=== PATIENT | female | born 1985 | race Two or more races ===

== ENCOUNTER 2016-11-07 05:06 | Day surgery (SDC) | payer BC, MEDICAID ==
[~2016-11-07 05:06] MED LIST: CLARITIN10 M8 PO; CYMBALTA30 MG; CYMBALTA60 MG; IBUPROFEN800 M1 PO; IMITREX100 M2 PO; LEVOTHYROXINE100 MC1 PO; NORCO 5/325 TAB1 TAB; PATADAY2.5 M1 EACH EYE; PERCOCET 5-3251 EACH PO; PROVENTIL HFA6.7 G1 INH; SYNTHROID75 MCG; TOPAMAX100 M2 PO; TOPAMAX50 MG; TYLENOL EXTRA500 M1 PO; UNKNOWN MED PO; VICKS NYQUIL; ZANAFLEX4 M2 PO; ZELNORM6 MG; [UNRECOGNIZED DRUG - OTHER]
== END 2016-11-07 14:15 ==
LOC: WSU 05:06 → SHSB 05:07 → ORW 06:53 → PACU 08:00 → SHSB 09:25
PROC: 0UT14ZZ Resection of Left Ovary, Percutaneous Endoscopic Approach (ICD-10-PCS; principal; 2016-11-07)
PROC: 8E0W4CZ Robotic Assisted Procedure of Trunk Region, Percutaneous Endoscopic Approach (ICD-10-PCS; 2016-11-07)
PROC: 0D5W4ZZ Destruction of Peritoneum, Percutaneous Endoscopic Approach (ICD-10-PCS; 2016-11-07)
DX: N83.02 Follicular cyst of left ovary (principal); N83.12 Corpus luteum cyst of left ovary; G89.29 Other chronic pain; E03.9 Hypothyroidism, unspecified; J45.990 Exercise induced bronchospasm; Z88.1 Allergy status to other antibiotic agents; Z79.899 Other long term (current) drug therapy; Z90.711 Acquired absence of uterus with remaining cervical stump; Z98.890 Other specified postprocedural states
CPT/HCPCS: J2270; J2550; J3010; J7030